=== PATIENT | male | born 1975 | race Caucasian/White ===

== ENCOUNTER 2023-10-31 08:22 | Outpatient (REF) | payer OTHER, SELFPAY ==
[2023-10-31 11:40] LABS: MANUAL DIFF FLAG NO
[2023-10-31 11:43] LABS: Basophils Percent Auto 0.5 % (0-2); Eosinophils Absolute Auto 0.2 X10*3/uL (0.0-0.4); Eosinophils Percent Auto 3.7 % (0-4); Hematocrit 48.1 % (42.0-52.0); Hemoglobin 16.2 g/dl (14.0-18.0); Imm Gran Abs Auto 0.02 X10*3/uL (0.00-0.03); Imm Gran Pct Auto 0.3 % (0.0-0.4); Lymphocytes Absolute Auto 2.1 X10*3/uL (1.2-4.9); Lymphocytes Percent Auto 36.1 % (20-40); Mean Corpuscular HGB Conc 33.7 g/dl (31.0-36.0); Mean Corpuscular Hemoglobin 30.5 pg (27.0-33.0); Mean Corpuscular Volume 90.6 fL (80.0-98.0); Mean Platelet Volume 10.2 fL (9.4-12.4); Monocytes Absolute Auto 0.6 X10*3/uL (0.1-1.2); Monocytes Percent Auto 10.6 % (2-11); Neutrophils Absolute Auto 2.9 x10*3/uL (2.0-8.3); Neutrophils Percent Auto 48.8 % (45-73); Platelet Count 219 X10*3/uL (160-400); Red Blood Count 5.31 X10*6/uL (4.60-5.80); Red Cell Distribution Width 13.1 % (11.0-16.0); White Blood Count 5.9 X10*3/uL (4.8-10.8)
[2023-10-31 12:07] LABS: Alanine Aminotransferase 46 U/L (0-40); Albumin Level 4.3 g/dL (3.5-5.0); Alkaline Phosphatase 83 U/L (39-117); Anion Gap 12 (12-20); Aspartate Amino Transferase 33 U/L (5-37); Bilirubin Total 1.7 mg/dL (0.0-1.0); Blood Urea Nitrogen 15 mg/dL (9-16); Calcium 9.7 mg/dL (8.4-10.2); Carbon Dioxide 25 mmol/L (22-29); Chloride 104 mmol/L (96-108); Cholesterol 219 mg/dL (<200); Estimated Glomerular Filt Rate > 60; Glucose Fasting 96 mg/dL (60-99); HDL Cholesterol 71 mg/dL (>40); LDL Cholesterol Calculated 98 mg/dL (<100); Potassium 4.1 mmol/L (3.3-5.1); Sodium 137 mmol/L (135-145); Total Protein 7.5 g/dL (6.5-8.0); Triglycerides 254 mg/dL (<150)
[2023-10-31 12:22] LABS: Thyroid Stimulating Hormone 2.41 uIU/mL (0.32-4.0)
== END 2023-10-31 08:23 | disposition home or self-care (01) ==
LOC: HO.HMGCLDS 08:22
PROVIDERS: PCP Internal Medicine; Visit Provider Internal Medicine
DX: F41.9 Anxiety disorder, unspecified (principal); E78.00 Pure hypercholesterolemia, unspecified; E78.2 Mixed hyperlipidemia
CPT/HCPCS: 36415; 80053; 80061; 84443; 85025

== ENCOUNTER 2024-12-20 08:46 | Outpatient (REF) | payer OTHER, SELFPAY ==
--- OUTSIDE RECORDS SUMMARY | 2024-12-20 08:49 | XMS_ITS ---
Author Organization Lit Iraheta DO, FACP Address [address] [place], [place] [phone] Care Team Providers Care Supervisor Evaporator Name Role Phone Lit Iraheta Primary Care Provider [phone] REASON FOR VISIT physical Encounters Encounter Location Date Provider Diagnosis Lit Iraheta DO, FACP [address] [place] [id number] 11/09/2024 Lit Iraheta PLAN OF TREATMENT No Information
--- OUTSIDE RECORDS SUMMARY | 2024-12-20 08:49 | XMS_ITS ---
Author Organization Lit Iraheta DO, [facility] Address [address] [place], [place] [phone] Care Team Providers Care Lyft Driver Name Role Phone Lit Iraheta Primary Care Provider [phone] REASON FOR VISIT Message Encounters Encounter Location Date Provider Diagnosis Lit Iraheta DO, [address] [id number] 07/04/2023 Lit Iraheta Anxiety F41.9 ; Hypercholesterolemia E78.00 and Mixed hyperlipidemia E78.2 ASSESSMENTS Encounter Date Diagnosis Assessment Notes Treatment Notes Treatment Clinical Notes 07/04/2023 Anxiety (ICD-10 - F41.9) 07/04/2023 Hypercholesterolemia (ICD-10 - E78.00) 07/04/2023 Mixed hyperlipidemia (ICD-10 - E78.2) PLAN OF TREATMENT No Information
--- OUTSIDE RECORDS SUMMARY | 2024-12-20 08:49 | XMS_ITS ---
Author Organization Lit Iraheta DO, [facility] Address [address] [place], [place] [phone] Care Team Providers Care Forging Press Setter Up Name Role Phone Lit Iraheta Primary Care Provider [phone] ALLERGIES No Known Allergies REASON FOR VISIT annual visit MEDICATIONS Medication SIG (Take, Route, Frequency, Duration) Notes Start Date End Date Status FLUoxetine HCl 40 MG 1 capsule Orally On ce a day for 90 days Active Atorvastatin Calcium 20 MG 1 tablet Oral ly Once a day for 90 days Active Clotrimazole-Betamethasone 1-0.05 % 1 application Externally Twice a day for 30 days Active SOCIAL HISTORY Tobacco Use: Social History Observation Description Date Details (start date - stop date) Never Smoker NA - NA Sex Assigned At : Social History Observation Description Sex Assigned At Unknown Tobacco Use/Smoking Question Answer Notes Patient is a nonsmoker Additional Findings: Tobacco User Aidee higginbotham non-smoker, currently using other form(s) of tobacco Alcohol Screen Question Answer Notes Did you have a drink contain ing alcohol in the past year? Yes How often did you have a dri nk containing alcohol in the past year? 4 or more times a week (4 points) How many drinks did you have on a typical day when you were drinking in the past year? 3 or 4 drinks (1 point) How often did you have 6 or more drinks on one occasion in the past year? Never (0 point) Points 5 Interpretation Positive PROBLEMS Problem Type ICD Code Onset Dates Problem Status W/U Status Risk SNOMED Code Notes Problem Other obesity due to excess calories (E66.09) Active confirmed 844143977 VITAL SIGNS BMI 34.00 kg/m2 11/05/2023 Blood pressure systolic 134 mm Hg 11/05/19 24 Blood pressure diastolic 72 mm Hg 024 Height 71.75 in 11/05/2023 Weight 249 lbs 11/05/2023 Encounters Encounter Location Date Provider Diagnosis Lit Iraheta , [address] [phone] 11/05/2023 Lit Iraheta Encounter for genera l adult medical examination without abnormal findings Z00.00 ; Hypercholesterolemia E78.00 ; Anxiety F41.9 and Other obesity due to excess calories E66.09 ASSESSMENTS Encounter Date Diagnosis Assessment Notes Treatment Notes Treatment Clinical Notes 11/05/2023 Encounter for genera l adult medical examination without abnormal findings (ICD-10 - Z00.00) Advised to decrease alcohol consumption 11/05/2023 Hypercholesterolemia (ICD-10 - E78.00) Low cholesterol diet; written guidelines provided 11/05/2023 Anxiety (ICD-10 - F41.9) 11/05/2023 Other obesity due to excess calories (ICD-10 - E66.09) Diet, exercise, weight loss. Needs to decrease his BMI. Goal weight loss of 15 pounds. Decrease carbohydrate intake PLAN OF TREATMENT Medication Medication Name Sig Start Date Stop Date Notes FLUoxetine HCl 40 MG 1 capsule Orally On ce a day for 90 days Atorvastatin Calcium 20 MG 1 tablet Oral ly Once a day for 90 days Clotrimazole-Betamethasone 1-0.05 % 1 application Externally Twice a day for 30 days Treatment Notes Assessment Notes Encounter for general adult medical examination without abnormal findings Advised to decrease alcohol consumption Hypercholesterolemia Low cholesterol t; written guidelines provided Other obesity due to excess calories t, exercise, weight loss. Needs to decrease his BMI. Goal weight loss of 15 pounds. Decrease carbohydrate intake Next Appt Details Follow Up: 1 Year, Reason: H &P Progress Notes * Examination Category Sub-Category Detail Notes General Examination GENERAL APPEARANCE: in no ac [place] distress, well developed, well nourished HEAD: normocephalic, atrau matic EYES: pupils equal, round, reactive to light and accommodation EARS: normal NECK/THYROID: neck supple, thyroid normal, no cervical lymphadenopathy, no carotid bruit HEART: no murmurs, regular rate and rhythm, S1, S2 normal LUNGS: clear to auscultatio n bilaterally ABDOMEN: normal, bowel sounds present, soft, nontender, nondistended NEUROLOGIC: nonfocal, motor stre ngth normal upper and lower extremities, sensory exam intact SKIN: warm and dry EXTREMITIES: no edema PERIPHERAL PULSES: 2+ dorsalis pedis, 2 + posterior tibial MALE GENITOURINARY no hernia, no penile lesions or discharge, no testicular mass, testes descended bilaterally PSYCH: alert, oriented, cog nitive function intact History and Physical Notes * HPI (History of Present Illness) Category Sub-Category Detail Notes Depression Screening PHQ-9 Little inte rest or pleasure in doing things: Not at all Feeling down, depressed, or hopeless: No t at all Trouble falling or staying asleep, or sl eeping too much: Not at all Feeling tired or having little energy: N ot at all Poor appetite or overeating: Not at all Feeling bad about yourself o r that you are a failure, or have let yourself or your family down: Not at all Trouble concentrating on thi ngs, such as reading the newspaper or watching television: Not at all Moving or speaking so slowly that other people could have noticed; or the opposite, being so fidgety or restless that you have been moving around a lot more than usual: Not at all Thoughts that you would be b karissa off or of hurting yourself in some way: Not at all Total Score: 0 Interpretation and Intervention Depression Angel Luis bernstein Findings: Negative Follow-Up for Depression: : Review of PH Q-9 found negative result; no follow-up needed Treatment Goals Continue current med ication Self-Managment Goals Exercise at least 3 xs per week Fall Risk Fall History Have you had two or more fal ls in the past year?: No Have you had any falls with injury in th e past year?: No Fall Risk Assessment:: No falls in the p ast year Communication Needs [facility] Communication Needs - [facility] Forrest timmons Impairment?: No Vision Impairment?: Yes wears cheaters f or close up Cognitive Impairment?: No
--- OUTSIDE RECORDS SUMMARY | 2024-12-20 08:49 | XMS_ITS | Patient Health Record ---
Author Organization Lit Iraheta DO, [facility] Address [address] [place], [place] [phone] Care Team Providers Care Replanting Machine Crewman Name Role Phone Lit Iraheta Primary Care Provider ALLERGIES No Known Allergies REASON FOR REFERRAL No Information MEDICATIONS Medication SIG (Take, Route, Frequency, Duration) Notes Start Date End Date Status FLUoxetine HCl 40 MG 1 capsule Orally On ce a day for 90 days Active Atorvastatin Calcium 20 MG 1 tablet Oral ly Once a day for 90 days Active Clotrimazole-Betamethasone 1-0.05 % 1 application Externally Twice a day for 30 days Active IMMUNIZATIONS Vaccine Route Administration Date Status Comme nts PPD Unknown 03/02/2013 Administered TDaP IM Intramuscular 05/11/2013 Administered COVID-19 Moderna Vaccine Unknown 11/10/2020 Administere d COVID-19 Moderna Vaccine Unknown 12/08/2020 Administere d COVID-19 Moderna Vaccine Unknown 10/31/2021 Administere d Influenza Unknown 11/06/2018 Refused SOCIAL HISTORY Tobacco Use: Social History Observation Description Date Details (start date - stop date) Never Smoker NA - NA Sex Assigned At : Social History Observation Description Sex Assigned At Unknown Tobacco Use/Smoking Question Answer Notes Patient is a nonsmoker Additional Findings: Tobacco User Curren t non-smoker, currently using other form(s) of tobacco [...] due to excess calories (E66.09) Active confirmed 811836019 Problem Mixed hyperlipidemia (E78.2) Active confirmed 020611433 Problem Anxiety (F41.9) Active confirmed 435048 02 Problem Hypercholesterolemia (E78.00) Active confirmed 60141283 Problem Current moderate episode of major depressive disorder without prior episode (F32.1) Active confirmed 84426769 Encounters Encounter Location Date Provider Diagnosis Lit Iraheta DO, [address] [phone] 11/09/2024 Lit Iraheta PLAN OF TREATMENT No Information Insurance Providers Payer Name Payer Address Payer Phone Subscriber Number Group Number Insured Name Patient Relationship to Insured Coverage Start Date Coverage End Date [facility] [address] [place] [phone] [id number] Micah Reynoso Self - patient is the insured 2 MEDICAL (GENERAL) HISTORY Medical History History ICD Code anxiety disorder Unspecified tick-borne rickettsiosis Cough Hypercholesterolemia E78.00 Mixed hyperlipidemia E78.2 Tinea cruris B35.6 Current moderate episode of major depres sive disorder without prior episode F32.1 Surgical History Surgery Date(Month/Year) wisdom teeth extraction vasectomy
[2024-12-20 10:15] LABS: MANUAL DIFF FLAG NO
[2024-12-20 10:26] LABS: Basophils Absolute Auto 0.1 X10*3/uL (0.0-0.2); Basophils Percent Auto 0.7 % (0-2); Eosinophils Absolute Auto 0.3 X10*3/uL (0.0-0.4); Eosinophils Percent Auto 4.5 % (0-4); Hematocrit 46.1 % (42.0-52.0); Hemoglobin 16.2 g/dl (14.0-18.0); Imm Gran Abs Auto 0.05 X10*3/uL (0.00-0.03); Imm Gran Pct Auto 0.7 % (0.0-0.4); Lymphocytes Absolute Auto 2.6 X10*3/uL (1.2-4.9); Lymphocytes Percent Auto 37.7 % (20-40); Mean Corpuscular HGB Conc 35.1 g/dl (31.0-36.0); Mean Corpuscular Hemoglobin 30.3 pg (27.0-33.0); Mean Corpuscular Volume 86.3 fL (80.0-98.0); Monocytes Absolute Auto 0.7 X10*3/uL (0.1-1.2); Monocytes Percent Auto 9.6 % (2-11); Neutrophils Absolute Auto 3.2 x10*3/uL (2.0-8.3); Neutrophils Percent Auto 46.8 % (45-73); Platelet Count 208 X10*3/uL (160-400); Red Blood Count 5.34 X10*6/uL (4.60-5.80); Red Cell Distribution Width 13.2 % (11.0-16.0); White Blood Count 6.9 X10*3/uL (4.8-10.8)
[2024-12-20 10:39] LABS: Estimated Average Glucose 120 mg/dL; Hemoglobin A1C 168.2277 umol/L; Hemoglobin A1c % 5.8 % (<6.0); Total Hemoglobin (HGBA1C) 4227.5134 umol/L
[2024-12-20 10:53] LABS: Alanine Aminotransferase 132 U/L (0-40); Albumin Level 4.6 g/dL (3.5-5.0); Alkaline Phosphatase 84 U/L (39-117); Anion Gap 14 (12-20); Aspartate Amino Transferase 66 U/L (5-37); Bilirubin Direct 0.3 mg/dL (0.0-0.5); Bilirubin Total 0.9 mg/dL (0.0-1.0); Blood Urea Nitrogen 14 mg/dL (9-16); C Reactive Protein 0.16 mg/dL (< or = 0.50); Calcium 9.6 mg/dL (8.4-10.2); Carbon Dioxide 20 mmol/L (22-29); Chloride 109 mmol/L (96-108); Cholesterol 192 mg/dL (<200); Estimated Glomerular Filt Rate > 60; Glucose Fasting 112 mg/dL (60-99); HDL Cholesterol 53 mg/dL (>40); LDL Cholesterol Calculated 101 mg/dL (<100); Magnesium 2.2 mg/dL (1.6-2.6); Potassium 4.4 mmol/L (3.3-5.1); Sodium 139 mmol/L (135-145); Total Protein 8.2 g/dL (6.5-8.0); Triglycerides 190 mg/dL (<150)
[2024-12-20 11:08] LABS: TSH reflex Free T4 2.18 uIU/mL (0.32-4.0); Vitamin D 25-OH Total 30.1 ng/mL (>30)
[2024-12-20 11:09] LABS: Folate 8.5 ng/mL (> or = 4.0); Vitamin B12 515 pg/mL (200-900)
[2024-12-24 14:23] LABS: Vitamin B1 9 nmol/L (8-30)
== END 2024-12-20 08:47 | disposition home or self-care (01) ==
LOC: HO.HMGCLDS 08:46
PROVIDERS: PCP Internal Medicine; Visit Provider Physician Assistant Medical
DX: Z00.00 Encounter for general adult medical examination without abnormal findings (principal); Z13.1 Encounter for screening for diabetes mellitus; Z13.29 Encounter for screening for other suspected endocrine disorder; Z13.0 Encounter for screening for diseases of the blood and blood-forming organs and certain disorders involving the immune mechanism; Z13.228 Encounter for screening for other metabolic disorders; Z13.220 Encounter for screening for lipoid disorders
CPT/HCPCS: 36415; 80053; 80061; 80076; 82248; 82306; 82607; 82746; 83036; 83735; 84425; 84443; 85025; 86140

== ENCOUNTER 2024-12-29 14:27 | Outpatient (AMB) | payer OTHER, SELFPAY ==
--- NOTE | 2024-12-29 14:30 | MHC.PC.OV ---
Vital Signs 12/29/24 14:46 Height 5 ft 10.5 in Weight 272 lb BMI 38.5 BP 154/96 H Blood Pressure Location Rt brachial Pulse 86 Pulse Source Pulse Oximeter Temp 97.2 F Pulse Oximetry (%) 96 Intake Visit Reasons: Physical Intake Note: has a rash on his forehead does not seem to be going away, and has plantar worts on his left foot, patient has lost his breath twice during the summer he would like to discuss Allergies No Known Allergies Allergy (Verified 12/29/24 14:34) HPI Physical HPI Details 49-year-old male presents to the office requesting an annual physical. Physical exam (Primary Care) Vital Signs: Last Vital Signs Temp 97.2 F 12/29/24 14:46 Pulse 86 12/29/24 14:46 BP 154/96 H 12/29/24 14:46 Pulse Ox 96 12/29/24 14:46 Care Plan Goal for BP management: Blood pressure is elevated. To monitor the blood pressure. BMI result Body Mass Index 38.5 BMI Assessment/Plan discussion: High (1 lb per week weight loss suggested.) BMI High, discussed plan: lifestyle, weight reduction and dietary Const General: cooperative and healthy appearing Nutritional Appearance: well nourished Orientation/consciousness: patient oriented x3 Limitations: no limitations HENMT Head: Yes normal to inspection Eyes General: appearance normal, both eyes and all related structures Neck Neck: Yes normal visual inspection Chest Chest palpation & inspection: normal palpation of entire chest wall Resp Effort & Inspection: normal respiratory effort Skin Other: Forehead: Erythematous rash with minimal scaling in the hair area. Neuro General: patient oriented x3 Coding Level of Care Code New Pt Prev Care 40-64y(01784) Diagnoses Annual physical exam Z00.00 Assessment & Plan Assessment & Plan (1) Annual physical exam: Code(s): Z00.00 - Encounter for general adult medical examination without abnormal findings Plan: BP is slightly elevated. Will monitor. Cream for the rash prescribed. Medications: Refilled clotrimazole-betameth dip-zinc 1-0.05-20 % apply CLOTRIMAZOLE/BETAMETHASONE CREAM twice daily: use ZINC OXIDE PASTE as needed/as directed topical 135 grams 0RF
[2024-12-29 14:46] VITALS: BP 154/96; PULSE 86; TEMP 36.2; O2SAT 96; BMI 38.5
--- OUTSIDE RECORDS SUMMARY | 2024-12-29 17:51 | XMS_ITS ---
Author Organization Lit Iraheta DO, [facility] Address [address] [place], [place] [phone] Care Team Providers Care Molybdenum Steamer Operator Name Role Phone Lit Iraheta Primary Care Provider ALLERGIES No Known Allergies REASON FOR VISIT [...] due to excess calories (E66.09) Active confirmed [id number] VITAL SIGNS BMI 34.00 kg/m2 11/05/2023 Blood pressure systolic 134 mm Hg 11/05/19 24 Blood pressure diastolic 72 mm Hg 024 Height 71.75 in 11/05/2023 Weight 249 lbs 11/05/2023 Encounters Encounter Location Date Provider Diagnosis Lit Iraheta , [address] [phone] 11/05/2023 Lit Iraheta Encounter for genera l [...] General Examination GENERAL APPEARANCE: in no ac [place] distress, well developed, well nourished HEAD: normocephalic, [...] year Communication Needs [facility] Communication Needs - [facility] oFrrest timmons Impairment?: No Vision Impairment?: Yes wears cheaters f or close up Cognitive Impairment?: No
--- OUTSIDE RECORDS SUMMARY | 2024-12-29 17:52 | XMS_ITS | Patient Health Record ---
Author Organization Lit Iraheta DO, [facility] Address [address] [place], [place] [phone] Care Team Providers Care Reweaver Name Role Phone Lit Iraheta Primary Care Provider [phone] ALLERGIES No Known Allergies REASON FOR REFERRAL [...] due to excess calories (E66.09) Active confirmed 817738133 Problem Mixed hyperlipidemia (E78.2) Active confirmed 540346166 Problem Anxiety (F41.9) Active confirmed 782063 02 Problem Hypercholesterolemia (E78.00) Active confirmed 39383720 Problem Current moderate episode of major depressive disorder without prior episode (F32.1) Active confirmed 74703967 Encounters Encounter Location Date Provider Diagnosis Lit Iraheta DO, [address] [id number] 11/09/2024 Lit Iraheta PLAN OF TREATMENT No Information Insurance Providers Payer Name Payer Address Payer Phone Subscriber Number Group Number Insured Name Patient Relationship to Insured Coverage Start Date Coverage End Date [facility] [address] [place] [phone] [id number] Micah Reynoso Self - patient is the insured 2 MEDICAL (GENERAL) HISTORY Medical History History ICD Code anxiety disorder Unspecified tick-borne rickettsiosis Cough Hypercholesterolemia E78.00 Mixed hyperlipidemia E78.2 Tinea cruris B35.6 Current moderate episode of major depres sive disorder without prior episode F32.1 Surgical History Surgery Date(Month/Year) wisdom teeth extraction vasectomy
--- OUTSIDE RECORDS SUMMARY | 2024-12-29 17:52 | XMS_ITS ---
Author Organization Lit Iraheta DO, [facility] Address [address] [place], [place] [phone] Care Team Providers Care Spares Scheduler Name Role Phone Lit Irhaeta Primary Care Provider REASON FOR VISIT Message Encounters Encounter Location Date Provider Diagnosis Lit Iraheta DO, [address] [id number] 07/04/2023 Lit Iraheta Anxiety F41.9 ; Hypercholesterolemia E78.00 and Mixed hyperlipidemia E78.2 ASSESSMENTS Encounter Date Diagnosis Assessment Notes Treatment Notes Treatment Clinical Notes 07/04/2023 Anxiety (ICD-10 - F41.9) 07/04/2023 Hypercholesterolemia (ICD-10 - E78.00) 07/04/2023 Mixed hyperlipidemia (ICD-10 - E78.2) PLAN OF TREATMENT No Information
--- OUTSIDE RECORDS SUMMARY | 2024-12-29 17:52 | XMS_ITS ---
Author Organization Lit Iraheta DO, FACP Address [address] [place], [place] [phone] Care Team Providers Care Rn Advanced Name Role Phone Lit Iraheta Primary Care Provider REASON FOR VISIT physical Encounters Encounter Location Date Provider Diagnosis Lit Iraheta DO, FACP [address] [place] [phone] 11/09/2024 Lit Iraheta PLAN OF TREATMENT No Information
== END 2024-12-29 15:00 | disposition home or self-care (01) ==
LOC: HO.HMCSH 14:27
PROVIDERS: PCP Internal Medicine; Visit Provider Internal Medicine
DX: Z00.00 Encounter for general adult medical examination without abnormal findings (principal)

== ENCOUNTER 2025-01-25 09:27 | Outpatient (AMB) | payer OTHER, SELFPAY ==
[2025-01-25 09:30] VITALS: BP 148/90; PULSE 72; RESP 14; TEMP 36.5; O2SAT 98; BMI 37.6
--- NOTE | 2025-01-25 09:30 | A.OFFPC_ITS ---
Vital Signs 01/25/25 09:30 Height 5 ft 10.5 in Weight 266 lb BMI 37.6 BP 148/90 H Respiration 14 Pulse 72 Pulse Source Pulse Oximeter Temp 97.7 F Temp Source Temporal Artery Scan Pulse Oximetry (%) 98 Oxygen Delivery Method Room Air Intake Visit Reasons: review lab test results Clinical Partner Required: No Accompanied by: Self / Same As Patient Allergies No Known Allergies Allergy (Verified 01/25/25 09:30) Tobacco use date assessed: 01/25/25 Dental Screening Dental Screen Date: 01/25/25 Did you have a dental visit in the last 12 months?: Yes Did you have a dental problem in the last 6 months where you did not have access to dental care?: No PFSH Family History (Updated 01/25/25 @ 09:50 by TERI Bragg) Mother Blood clot in vein Father High blood pressure High cholesterol Social History (Updated 01/25/25 @ 09:50 by TERI Bragg) Housing: House Alcohol intake: current Alcohol intake frequency: 3 or more drinks per day Patient Tobacco Use Status: Never used Tobacco service: No Current occupational status: employed Cognitive needs: No Hearing needs: No Vision needs: Yes (reading glasses) Questionnaire PHQ-9 Over the last 2 weeks, how often have you been bothered by any of the following problems? 1. Little interest or pleasure in doing things: not at all 2. Feeling down, depressed, or hopeless: not at all 3. Trouble falling or staying asleep, or sleeping too much: not at all 4. Feeling tired or having little energy: not at all 5. Poor appetite or overeating: not at all 6. Feeling bad about yourself - or that you are a failure or have let yourself or your family down: not at all 7. Trouble concentrating on things, such as reading the newspaper or watching television: not at all 8. Moving or speaking so slowly that other people could have noticed. Or the opposite - being so fidgety or restless that you have been moving around a lot more than usual: not at all 9. Thoughts that you would be better off or of hurting yourself in some way: not at all Total score: 0 Source: Developed by Drs. Lit Gtz, Yessy B.WBrain Rojas and colleagues, with an educational edith from [employer]. Thrive Questionnaire Date Thrive assessed: 01/25/25 I am a: Patient What is your living situation today?: I have a steady place to live Within the past 12 months, did the food you bought not last and you didn't have the money to get more?: Never true Within the past 12 months, did you worry whether your food would run out before you got money to buy more?: Never true Do you have trouble paying for medicines?: No Do you have trouble getting transportation to medical appointments?: No Do you have trouble paying your heating and electricity bill?: No Do you have trouble taking care of your child, family member or friend?: No Do you have trouble with day-to-day activities such as bathing, preparing meals, shopping, managing finances, etc.?: No Are you currently unemployed and looking for a job?: No Are you interested in more education?: No Please select the resources that you would like help with: None THRIVE Score: 0 AUDIT C Alcohol Use Questionnaire (AUDIT-C) 1. How often do you have a drink containing alcohol?: 4 or more times a week 2. How many drinks containing alcohol do you have on a typical day when you are drinking?: 1 or 2 3. How often do you have six or more drinks on one occasion?: Never Total Score: 4 ION-7 AMB Questionnaire ION-7 Date ION - 7 assessed: 01/25/25 Feeling nervous, anxious, or on edge: 0 = Not at all Not being able to stop or control worryin = Not at all Worrying too much about different things: 0 = Not at all Trouble relaxin = Not at all Being so restless that it is hard to sit still: 0 = Not at all Becoming easily annoyed or irritable: 0 = Not at all Feeling afraid as if something awful might happen: 0 = Not at all Total ION-7 score (0-4 normal; 5-9 mild; 10-14 moderate; 15-21 severe): 0 Source: Developed by Drs. Lit Gtz, Brain Noguera and colleagues, with an educational edith from [employer]. Physical exam (Primary Care) Vital Signs: Last Vital Signs Temp 97.7 F 01/25/25 09:30 Pulse 72 01/25/25 09:30 Resp 14 01/25/25 09:30 BP 148/90 H 01/25/25 09:30 Pulse Ox 98 01/25/25 09:30 Oxygen Delivery Method Room Air 01/25/25 09:30 BMI result Body Mass Index 37.6 Tobacco/Smoking Status: Tobacco use Status Tobacco use date assessed 01/25/25 01/25/25 09:32 Patient Tobacco Use Status Never used Tobacco 01/25/25 09:50 PHQ-9: PHQ-9 Score PHQ-9: Total score 0 01/25/25 11:25 Thrive Assessment: Date of Thrive Assessment Date Thrive assessed 01/25/25 01/25/25 09:32 Coding Level of Care Code Est Pt Level 4 (27006) Complex EM visit Add On G2211 Diagnoses Plantar wart B07.0 Abnormal liver enzymes R74.8 Assessment & Plan Assessment & Plan (1) Plantar wart: Code(s): B07.0 - Plantar wart (2) Abnormal liver enzymes: Code(s): R74.8 - Abnormal levels of other serum enzymes Plan: Condition is stable Plan History of Present Illness The patient is a 49-year-old male presenting for a comprehensive physical examination. He reports being overweight with a history of elevated cholesterol and blood pressure readings. Laboratory tests from December confirmed high cholesterol levels and elevated liver enzymes. His weight management has been challenged by personal life changes following a divorce and new living circumstances, which have affected his previous fitness regimen and dietary habits. He regularly consumes alcohol, primarily vodka, and acknowledges prior cessation for two years due to health reasons. At present, he consumes alcohol daily but is attempting to decrease this habit. Symptoms include a rash on the scalp, self-treated with Aquaphor, and plantar warts with associated foot discomfort. Social History - Employment: Works at a correctional facility, managing a drug lab. - Marital Status: with shared custody of three children, aged 8, 11, and 19. - Substance Use: Daily alcohol consumption, occasional cannabis use. - Exercise: Sporadic gym activity; prior fitness enthusiast. - Nutrition: Poor dietary choices when alone; access to buffet-style cafeteria at work. - Living Situation: Recently relocated, sharing custody of children. Review of Systems - Dermatologic: Reports a persistent rash on the scalp. - Musculoskeletal: Denies difficulty with routine physical activity; reports foot pain likely related to plantar warts. Physical Exam General: Appearance normal, both eyes and all related structures Nutritional Appearance: Well nourished Orientation/consciousness: Patient oriented x3 Limitations: No limitations Head: Rash on head, likely seborrhea Neck: Normal visual inspection Chest: Normal palpation of entire chest wall Respiratory: Normal respiratory effort, but patient reported episodes of breathlessness during strenuous activities Neurology: Patient oriented x3 Results - Labs: Elevated cholesterol and liver enzymes from December blood tests. Plan Focus on managing essential hypertension and hyperlipidemia through lifestyle changes, involving weight loss, dietary modifications, and regular exercise. To address obesity, emphasize creating a structured food and exercise plan to instill long-term habits. Encourage reduction in alcohol intake by limiting purchase size and designating days of abstinence, particularly when his children are present. For dermatologic issues, treat the scalp rash with prescribed ointment and continue self-application treatment for plantar warts, with the option of podiatry consultation if symptoms persist. Plan a follow-up in three months to assess patient progress. Patient was informed and verbally consented to the use of an ambient scribe for clinic note documentation during this visit. Discussion Notes I discussed the importance of addressing weight management as it relates to his elevated cholesterol and liver enzyme levels. Educated the patient about l ifestyle adjustments, including diet and exercise, as essential components in managing these health issues. We discussed the potential impacts of alcohol on liver health and formulated a strategy for reducing intake in a manageable manner. Consent was obtained for prescribing ointment for the scalp rash. We discussed the potential option for podiatric intervention if the [id number] approach for his plantar warts is ineffective. A follow-up plan was set, establishing expectations for re-evaluation in three months to assess the effectiveness of interventions. Patient Instructions - Follow a structured exercise and diet plan to promote weight loss. - Minimize alcohol consumption, starting by reducing the purchase size and creating alcohol-free days. - Apply the prescribed ointment on the scalp rash as directed. - Continue [id number] treatment for plantar warts; consult a manager fitness if symptoms persist. - Schedule a follow-up appointment in three months to review progress. Orders: Orders US abdomen complete 01/25/25 R74.8 - Abnormal levels of other serum enzymes Hepatitis A,B,C Profile 01/25/25 R74.8 - Abnormal levels of other serum enzymes Referrals Podiatry Referral B07.0 - Plantar wart Medications: New lisinopril 10 mg PO DAILY 90 tabs 1RF
== END 2025-01-25 10:26 | disposition home or self-care (01) ==
LOC: HO.HMCSH 09:27
PROVIDERS: PCP Internal Medicine; Visit Provider Internal Medicine
DX: B07.0 Plantar wart (principal); R74.8 Abnormal levels of other serum enzymes

== ENCOUNTER → 2025-01-25 09:27 | Outpatient (BNVA) | payer OTHER, SELFPAY | PROVIDERS: PCP Internal Medicine; Visit Provider Internal Medicine ==

== ENCOUNTER 2025-03-07 08:23 | Outpatient (REF) | payer OTHER, SELFPAY ==
--- NOTE | ~2025-03-07 | US_ITS ---
EXAMINATION: US ABDOMEN HISTORY: R74.8 - Abnormal levels of other serum enzymes TECHNIQUE: Real-time grayscale ultrasound imaging of the abdomen was performed and images were reviewed. COMPARISON: There are no prior studies for comparison. FINDINGS: Liver: The right lobe of the liver measures 14.0 cm in size. The left lobe of the liver measures 9.8 cm in size. The liver demonstrates increased echotexture, consistent with steatosis. No focal mass or intrahepatic biliary ductal dilatation is identified. There is normal hepatopedal flow in the portal vein. Gallbladder and biliary tree: The gallbladder is unremarkable, without evidence of calculi, wall thickening, or pericholecystic fluid. There is no sonographic Louise sign. The common bile duct is normal in caliber measuring 3 mm. Kidneys: The right kidney measures 13.0 cm in length. Left kidney measures 12.3 cm in length. The kidneys are unremarkable, without evidence of masses, hydronephrosis, or calculi. Pancreas: The pancreatic head, neck, and body are unremarkable. The pancreatic tail is obscured by bowel gas. Spleen: The spleen is normal in size and contour, measuring 12.7 cm in length. Abdominal aorta and inferior vena cava: The visualized portions of the abdominal aorta and inferior vena cava are normal in caliber. There is no free fluid in the abdomen. US/US abdomen complete IMPRESSION: Hepatic steatosis. Electronically signed by: Lit Garcia MD 03/07/2025 09:55 AM EDT
== END 2025-03-07 08:24 | disposition home or self-care (01) ==
LOC: HO.HMGCX 08:23
PROVIDERS: PCP Internal Medicine; Visit Provider Internal Medicine
DX: R74.8 Abnormal levels of other serum enzymes (principal)
CPT/HCPCS: 76700

== ENCOUNTER → 2025-03-07 08:27 | Outpatient (BNV) | payer OTHER, SELFPAY | PROVIDERS: PCP Internal Medicine; Visit Provider Radiology Diagnostic Radiology | DX: K76.0 Fatty (change of) liver, not elsewhere classified (principal) | CPT/HCPCS: 76700 ==

== ENCOUNTER 2025-10-03 08:39 | Outpatient (AMB) | payer OTHER, SELFPAY ==
[2025-10-03 08:47] VITALS: BP 119/78; PULSE 82; RESP 14; TEMP 36.5; O2SAT 96; BMI 36.9
--- NOTE | 2025-10-03 08:47 | A.OFFPC_ITS ---
Vital Signs 10/03/25 08:47 Height 5 ft 10.5 in Weight 261 lb BMI 36.9 BP 119/78 Blood Pressure Location Rt brachial Position Sitting Respiration 14 Pulse 82 Pulse Source Pulse Oximeter Temp 97.7 F Temp Source Temporal Artery Scan Pulse Oximetry (%) 96 Oxygen Delivery Method Room Air Intake Visit Reasons: Prolong cough - see comments Ict Project Manager Required: No Accompanied by: Self / Same As Patient Allergies No Known Allergies Allergy (Verified 10/03/25 13:22) Medication List - Last Reconciled 10/03/25 by Basil San MD atorvastatin 20 mg PO DAILY azithromycin take 500 mg today (day 1), then 250 mg for 4 days (days 2-5) PO budesonide-formoterol 80-4.5 mcg/actuation (Symbicort) 1 inh inhalation BID clotrimazole-betameth dip-zinc 1-0.05-20 % apply CLOTRIMAZOLE/BETAMETHASONE CREAM twice daily: use ZINC OXIDE PASTE as needed/as directed topical clotrimazole-betamethasone 1-0.05 % 1 appl topical BID losartan 50 mg PO DAILY prednisone 60 mg (3 x 20 mg) PO DAILY Tobacco use date assessed: 01/25/25 Dental Screening Dental Screen Date: 01/25/25 HPI HPI Comments History of Present Illness Details History of Present Illness - The patient is a 50 year old individua l presenting for evaluation of a chronic cough. - The patient reports the cough began in May and has not resolved. - The cough is characterized as a dry, t ickling sensation that becomes worse at night upon lying down and in the morning. - The coughing fits are sometimes severe enough to cause gagging on phlegm and vomiting. - The symptoms are significantly disrupt ing sleep for both the patient and the patient's partner. - The patient has tried Mucinex Night Co ugh with some benefit and also attempted a one-week trial of Prilosec without relief. - The patient denies a history of asthma or allergies. - The cough is not triggered by exercise but can be exacerbated by heat. - The patient takes medications for chol esterol and high blood pressure. - The patient reports being able to clim b three flights of stairs without stopping. - The patient denies smoking. Social History - Tobacco Use: The patient denies smokin g. - Employment: The patient works at the [employer]. - Exercise: The patient goes to the gym. - Functional Status: The patient reports being able to climb three flights of stairs without stopping. Results PFSH Family History Mother Blood clot in vein Father High blood pressure High cholesterol Social History Housing: House Alcohol intake: current Alcohol intake frequency: 3 or more drinks per day Patient Tobacco Use Status: Never used Tobacco service: No Current occupational status: employed Cognitive needs: No Hearing needs: No Vision needs: Yes (reading glasses) Questionnaire PHQ-9 Over the last 2 weeks, how often have you been bothered by any of the following problems? 1. Little interest or pleasure in doing things: not at all 2. Feeling down, depressed, or hopeless: not at all 3. Trouble falling or staying asleep, or sleeping too much: not at all 4. Feeling tired or having little energy: not at all 5. Poor appetite or overeating: not at all 6. Feeling bad about yourself - or that you are a failure or have let yourself or your family down: not at all 7. Trouble concentrating on things, such as reading the newspaper or watching television: not at all 8. Moving or speaking so slowly that other people could have noticed. Or the opposite - being so fidgety or restless that you have been moving around a lot more than usual: not at all 9. Thoughts that you would be better off or of hurting yourself in some wa y: not at all Total score: 0 Source: Developed by Drs. Lit Gtz, Yessy Cornejo, Brain Martinez and colleagues, with an educational edith from [employer]. Thrive Questionnaire Date Thrive assessed: 01/25/25 I am a: Patient What is your living situation today?: I have a steady place to live Within the past 12 months, did the food you bought not last and you didn't have the money to get more?: Never true Within the past 12 months, did you worry whether your food would run out before you got money to buy more?: Never true Do you have trouble paying for medicines?: No Do you have trouble getting transportation to medical appointments?: No Do you have trouble paying your heating and electricity bill?: No Do you have trouble taking care of your child, family member or friend?: No Do you have trouble with day-to-day activities such as bathing, preparing meals, shopping, managing finances, etc.?: No Are you currently unemployed and looking for a job?: No Are you interested in more education?: No Please select the resources that you would like help with: None THRIVE Score: 0 AUDIT C Alcohol Use Questionnaire (AUDIT-C) 1. How often do you have a drink containing alcohol?: 4 or more times a week 2. How many drinks containing alcohol do you have on a typical day when you are drinking?: 1 or 2 3. How often do you have six or more drinks on one occasion?: Never Total Score: 4 ION-7 AMB Questionnaire ION-7 Date ION - 7 assessed: 01/25/25 Feeling nervous, anxious, or on edge: 0 = Not at all Not being able to stop or control worryin = Not at all Worrying too much about different things: 0 = Not at all Trouble relaxin = Not at all Being so restless that it is hard to sit still: 0 = Not at all Becoming easily annoyed or irritable: 0 = Not at all Feeling afraid as if something awful might happen: 0 = Not at all Total ION-7 score (0-4 normal; 5-9 mild; 10-14 moderate; 15-21 severe): 0 Source: Developed by Drs. Lit Gtz, Yessy Cornejo, Brain Martinez and colleagues, with an educational edith from [employer]. Review of Systems Narrative Review of Systems - Respiratory: Reports a chronic, dry, tickling cough since May, which is worse at night and in the mornings and sometimes productive of phlegm. - Denies dyspnea on exertion. - ENT: Reports constantly blowing nose in the morning after hacking up phlegm. - Gastrointestinal: Reports occasional post-tussive emesis. - Constitutional: Reports sleep disturbance due to cough. - Allergic/Immunologic: Denies any history of allergies. Physical exam (Primary Care) Vital Signs: Last Vital Signs Temp 97.7 F 10/03/25 08:47 Pulse 82 10/03/25 08:47 Resp 14 10/03/25 08:47 BP 119/78 10/03/25 08:47 Pulse Ox 96 10/03/25 08:47 Oxygen Delivery Method Room Air 10/03/25 08:47 BMI result Body Mass Index 36.9 Tobacco/Smoking Status: Tobacco use Status Tobacco use date assessed 01/25/25 10/03/25 08:48 Patient Tobacco Use Status Never used Tobacco 10/03/25 08:48 PHQ-9: PHQ-9 Score PHQ-9: Total score 0 10/03/25 09:18 Thrive Assessment: Date of Thrive Assessment Date Thrive assessed 01/25/25 10/03/25 08:48 Narrative Physical Exam General: Cooperative and healthy appearing Nutritional Appearance: Well nourished Orientation/consciousness: Patient oriented x3 Limitations: No limitations Head: Normal to inspection General: Appearance normal, both eyes and all related structures Neck: Normal visual inspection Chest: Normal palpation of entire chest wall Respiratory: Normal respiratory effort Neurology: Patient oriented x3 Office Procedures Flu Questionnaire Does the patient have a severe egg allergy?: No Does the patient have severe life threatening allergies?: No Does the patient have a fever or illness today?: No Has the patient ever had Guillain-[place] Syndrome?: No Has the patient ever had any past reaction to a flu shot?: No Immunizations Fluarix [id number] (PF) 45 mcg (15 mcg x 3)/0.5 mL IM syringe Performing Provider: Basil San MD [facility]forming [facility]: [facility] Documented (not given) by: TERI Bragg on 10/03/25 09:02 Reason Not Given: Patient Refused Coding Level of Care Code Complex visit Add On G2211 Diagnoses Cough R05.9 Assessment & Plan Assessment & Plan (1) Cough: Code(s): R05.9 - Cough, unspecified Plan Plan - An BREE inhibitor was identified as a potential cause of the cough, and the current blood pressure medication will be discontinued. - A new blood pressure medication will be prescribed. - A 5-day course of antibiotics and a 3-day course of prednisone will be prescribed to address a possible infectious etiology. - An inhaler will be prescribed for once-daily use. - A chest X-ray has been ordered to rule out other underlying pathology. - The patient will follow up in one month for reassessment. Discussion Notes I discussed the common causes of chronic cough with the patient, including allergies, asthma, reflux, and medication side effects. I explained that the patient's blood pressure medication, an BREE inhibitor, can cause a dry cough and recommended switching to a different medication. Although an infection is unlikely given the long duration, I believe it is prudent to rule it out and pr escribed a course of antibiotics and prednisone. I also prescribed a daily inhaler. To ensure no other underlying issues are present, I ordered a chest x- ray and instructed the patient on how to obtain it as a walk-in. We will reassess the patient's condition in a follow-up visit scheduled for one month. Patient Instructions - Stop your current blood pressure medication once you have the new pr escription. - Start the new blood pressure medication as directed. - Take the prescribed antibiotic for 5 days. - Take the prescribed prednisone for 3 days. - Use the inhaler once every day. - Please get a chest x-ray. - You can go to the x-ray facility on [address] as a walk-in. - Schedule a follow-up appointment in one month. Orders: Orders Influenza [id number] Immunization Today Z23 - Encounter for immunization XR chest 2V Today R05.9 - Cough, unspecified Referrals Cologuard Test Z12.11 - Encounter for screening for malignant neoplasm of colon Medications: New losartan 50 mg PO DAILY 90 tabs 1RF azithromycin take 500 mg today (day 1), then 250 mg for 4 days (days 2-5) PO 6 tabs 0RF budesonide-formoterol 80-4.5 mcg/actuation (Symbicort) 1 inh inhalation BID 10.2 grams 1RF prednisone 60 mg (3 x 20 mg) PO DAILY 9 tabs 0RF Discontinued lisinopril Discontinued Reason: Doctor's Order 10 mg PO DAILY 90 tabs 3RF
== END 2025-10-03 09:20 | disposition home or self-care (01) ==
LOC: HO.HMCSH 08:39
PROVIDERS: PCP Internal Medicine; Visit Provider Internal Medicine
DX: R05.9 Cough, unspecified (principal)

== ENCOUNTER 2025-10-03 08:39 | Outpatient (REF) | payer OTHER, SELFPAY ==
--- NOTE | ~2025-10-03 | XR_ITS ---
EXAMINATION: XR CHEST CLINICAL INFORMATION: R05.9 - Cough, unspecified COMPARISON: None available. TECHNIQUE: 2 views of the chest were obtained. FINDINGS: The cardiomediastinal silhouette is within normal limits. The lungs are well expanded. There is no focal consolidation, edema, or effusion. Mild bilateral lower lung bronchial wall thickening. No pneumothorax. No acute osseous abnormality. XR/XR chest 2V IMPRESSION: Mild bronchial wall thickening can be seen with small airway disease. Electronically signed by: Bob Christopher MD 10/03/2025 03:37 PM EST
== END 2025-10-03 08:40 | disposition home or self-care (01) ==
LOC: HO.HMGCX 08:39
PROVIDERS: PCP Internal Medicine; Visit Provider Internal Medicine
DX: R05.3 Chronic cough (principal)
CPT/HCPCS: 71046

== ENCOUNTER → 2025-10-03 09:38 | Outpatient (BNV) | payer OTHER, SELFPAY | PROVIDERS: PCP Internal Medicine; Visit Provider Radiology Diagnostic Ultrasound | DX: J98.09 Other diseases of bronchus, not elsewhere classified (principal) | CPT/HCPCS: 71046 ==